=== PATIENT | female | born 2000 | race Asian ===

== ENCOUNTER 2022-10-07 13:28 | Emergency (ER) | payer OTHER ==
[~2022-10-07] VITALS: Ht 157.5 cm; Wt 65.8 kg
[2022-10-07 14:14] VITALS: BP_SYST 127
[2022-10-07 18:00] VITALS: BP_SYST 127
== END 2022-10-07 18:00 | disposition home or self-care (01) ==
LOC: SED 13:28
DX: M54.50 Low back pain, unspecified (principal); M79.662 Pain in left lower leg; Z88.0 Allergy status to penicillin; Z88.2 Allergy status to sulfonamides; Z91.041 Radiographic dye allergy status; Z79.899 Other long term (current) drug therapy
CPT/HCPCS: 93971; 99284